=== PATIENT | male | born 1975 | race Caucasian/White ===

== ENCOUNTER → 2018-11-05 | Day surgery (SDC) | payer OTHER ==
[2018-11-02 13:33] LABS: BASOPHILS % 0.6 % (0.0-1.0); EOSINOPHILS # (AUTO) 0.1 (0.0-0.4); EOSINOPHILS % 1.6 % (0.0-6.0); HEMATOCRIT 47.9 % (38.2-49.6); HEMOGLOBIN 16.3 g/dL (14.0-18.0); LYMPHOCYTES # (AUTO) 1.5 (1.0-3.2); LYMPHOCYTES % 29.8 % (18.0-39.1); MEAN CORPUSCULAR VOLUME 88.2 fL (81-99); MONOCYTES # (AUTO) 0.5 (0.2-0.8); MONOCYTES % 10.2 % (4.4-11.3); NEUTROPHILS # (AUTO) 2.8 (2.1-6.9); NEUTROPHILS % 57.4 % (38.7-80.0); PLATELET COUNT 193 x10e3/uL (140-360); RED BLOOD COUNT 5.43 x10e6/uL (4.3-5.7); RED CELL DISTRIBUTION WIDTH 11.9 % (11.7-14.4)
--- NOTE | 2018-11-02 13:39 | Diagnostic Imaging Report ---
EXAMINATION: PA and lateral views of the chest. COMPARISON: None CLINICAL HISTORY: Preoperative study for ankle surgery DISCUSSION: Lines/tubes: None. Lungs: The lungs are well inflated and clear. There is no evidence of pneumonia or pulmonary edema. Pleura: There is no pleural effusion or pneumothorax. Heart and mediastinum: The cardiomediastinal silhouette is normal. Bones and soft tissues: No acute bony abnormalities. IMPRESSION: No acute cardiopulmonary abnormalities. Signed by: Dr. Troy Alvarenga M.D. on 11/02/2018 1:35 PM
[2018-11-02 13:52] LABS: BLOOD UREA NITROGEN 11 mg/dL (7-26); BUN/CREATININE RATIO 14 (6-25); CALCIUM 9.1 mg/dL (8.4-10.2); CARBON DIOXIDE 24 mmol/L (22-29); CHLORIDE 107 mmol/L (98-107); EST GLOMERULAR FILTRATION RATE > 60 ML/MIN (60-); GLUCOSE 84 mg/dL (74-118); SODIUM 139 mmol/L (136-145)
[~2018-11-05] MED LIST: ACETAMINOPHEN 1000 MG/100 ML 100 ML IV ONE; BUPIVACAINE HCL 0.5% INJ 30 ML VIAL INJ ONE; CEFAZOLIN SOD 2 GM/D5W 50ML 50 ML IV ONE; CRESTOR10 MG; DEXAMETHASONE SOD PHOS INJ 4 MG/ML VIAL ONE; DIOVAN160 MG PO; FENTANYL CITRATE/PF 100MCG/2 ML INJ ONE; GLYCOPYRROLATE INJ 1MG/ 5 ML SYR ONE; HYDROMORPHONE 2MG/ML 2 MG/ML ML ONE; KETOROLAC TROMETHAMINE 30 MG/ML VIAL ONE; KRILL OIL500 MG PO; LIDOCAINE HCL 2% LOCAL INJ 5 ML SDV VIAL INJ ONE; LOSARTAN POTAS100 MG PO; METOCLOPRAMIDE HCL 10 MG/2ML VIAL ONE; MIDAZOLAM HCL 2 MG/2 ML VIAL ONE; MULTIVITAMINS1 EAC7 PO; MUPIROCIN 2% OINT 22 GM TUBE ONE; NEOSTIGMINE 5 MG/5ML SYR ONE; ONDANSETRON HCL INJ 2MG/ML 2ML 2 MG/ML VIAL ONE; PROMETHAZINE HCL (IM) 25 MG/ML VIAL ONE; PROPOFOL IV EMULSION 10 MG/ML 20 ML VIAL ONE; ROCURONIUM BROMIDE 10 MG/ML 5ML VIAL ONE; SEVOFLURANE INHAL SOLN 250 ML PEN BTL ONE
--- OUTSIDE RECORDS SUMMARY | 2018-11-05 08:17 | XMS REPORT ---
[facility] Address Unknown Phone Unavailable Care Team Providers Care Floor Manager Name Role Phone AN FRANCOIS Unavailable Unavailable Problems This patient has no known problems. Allergies, Adverse Reactions, Alerts This patient has no known allergies or adverse reactions. Medications This patient has no known medications. Results Test Description Test Time Test Comments Text Results Atomic Results Result Comments CHEST 2 VIEWS 2018-11-02 13:34:00 [place] [address] Patient Name: ALLEN HYATT MR #: [id number] : 1975 Age/Sex: 42/M Req #: [id number] Adm Physician: Ordered by: AN FRANCOSI DPM Report #: [id number] Location: OR Room/Bed: Procedure: [id number] DX/CHEST 2 VIEWS Exam Date: 11/02/18 Exam Time: 1330 REPORT STATUS: Signed EXAMINATION: PA and lateral views of the chest. C OMPARISON: None CLINICAL HISTORY: Preoperative study for ankle surgery DISCUSSION: Lines/tubes: None. Lungs: The lungs are well inflated and clear. There is no evidence of pneumonia or pulmonary edema. Pleura: There is no pleural effusion or pneumothorax. Heart and mediastinum: The cardiomediastinal silhouette is normal. Bones and soft tissues: No acute bony abnormalities. IMPRESSION: No acute cardiopulmonary abnormalities. Signed by: Dr. Mary Kendrick M.D. on 11/02/2018 1:35 PM Dictated By: MARY KENDRICK MD Transcribed By: ARIK on 11/02/181334 COPY TO: AN FRANCOIS DPM
[2018-11-05 14:15] VITALS: BP 124/77
--- NOTE | 2018-11-05 16:38 | Operative Report ---
DATE OF PROCEDURE: 11/05/2018 SURGEON: eNgro Majano DPM PREOPERATIVE DIAGNOSES: 1. Plantar heel spur, right foot. 2. Retrocalcaneal exostosis with enthesopathy, right foot. 3. Contracted Achilles tendon, right foot. POSTOPERATIVE DIAGNOSES: 1. Plantar heel spur, right foot. 2. Retrocalcaneal exostosis with enthesopathy, right foot. 3. Contracted Achilles tendon, right foot. TITLE OF OPERATION: 1. Resection of plantar heel spur, right foot. 2. Repair of the Achilles tendon, right foot. 3. Retrocalcaneal exostectomy, right foot. 4. Gastrocnemius soleus recession, right foot. PROCEDURE IN DETAIL: The patient was taken to the operating room in a mildly sedated state and placed upon the operating room table in supine position. Following induction of general anesthetic, the right lower extremity was elevated to 60 degrees to exsanguinate before inflating the pneumatic thigh tourniquet to 350 mmHg to create hemostasis. Right lower extremity was placed upon the operating table prior to performing the following procedure. Procedure #1 is excision of heel spur on the plantar aspect of the right foot. The patient was taken to the operating room and placed upon the operating table in supine position. The heel was prepped and draped in usual aseptic manner. Utilizing fluoroscopy, a stab incision was placed medially and the plantar fascial band was sectioned to allow for exposure of the large plantar calcaneal spur. This having been exposed, a rasp was used to resect this large spur. The area was irrigated with copious amounts of sterile saline solution. Deep closure with 4-0 Vicryl and 4-0 nylon. The patient was then turned prone on the table and attention was directed to the posterior aspect of the right heel. A curvilinear incision was made across the posterior aspect of the right heel to expose the partially ruptured Achilles along with retrocalcaneal exostosis. The tendon itself was reflected from the underlying exostosis. The enthesopathy was dissected free from the tendon and an osteotome and mallet were used to remove the posterior aspect of the heel with a large segment included. The area was irrigated with copious amounts of sterile saline solution and this was done under fluoroscopy. An appropriate drill was used to place the anchor. A FiberWire absorbable anchor was placed in the posterior aspect of the heel, which allowed for reattachment of the previously ruptured Achilles tendon. This was then repaired with FiberWire as well. It was noted that the new position had a contracture to the gastrocnemius, therefore an incision was made and an additional procedure was performed that being a gastrocnemius recession. After that, incision was placed in the posterior aspect of the right leg. Gastrocnemius tendon was identified. Transverse Carmen procedure was performed, which allowed for a lengthening of the tendon for proper insertion. Both areas were irrigated with copious amounts of sterile saline solution. Deep closure with 3-0 Vicryl, subcutaneous closure with 4-0 Vicryl, and skin closure with 4-0 nylon. The area of the surgery was then blocked with 0.5 Marcaine, Decadron-LA. A human tissue allograft had been applied to the previously ruptured area of the Achilles tendon to facilitate healing prior to the paratenon closure. The release of the pneumatic thigh tourniquet showed a normal hyperemic flush and the patient left the operating room with vital signs stable in apparent satisfactory condition, having tolerated both anesthetic and procedure very well. JULIANE Cazares/MISAEL /[id number]
== END | disposition home or self-care (01) ==
LOC: OR 08:15
PROVIDERS: ATTEND Podiatrist Foot Surgery
DX: M77.31 Calcaneal spur, right foot (principal); M77.51 Other enthesopathy of right foot and ankle; M67.01 Short Achilles tendon (acquired), right ankle; M66.871 Spontaneous rupture of other tendons, right ankle and foot; M24.574 Contracture, right foot; E78.00 Pure hypercholesterolemia, unspecified; R03.0 Elevated blood-pressure reading, without diagnosis of hypertension; Z01.810 Encounter for preprocedural cardiovascular examination; Z01.812 Encounter for preprocedural laboratory examination; Z01.818 Encounter for other preprocedural examination
CPT/HCPCS: 27650; 27687; 28118; 28119; 36415; 71046; 80048; 85025; 93005; C1713; J0131; J0690; J1100; J1170; J1885; J2001; J2250; J2405; J2550; J2704; J2765; J3490; Q4100